=== PATIENT | male | born 2000 | race Hispanic/Latino ===

== ENCOUNTER 2021-07-25 19:17 | Emergency (ER) | payer SELFPAY ==
[2021-07-25 19:19] VITALS: BP 146/86
[2021-07-25] MEDS ORDERED: TETANUS/DIPHTHERIA TOXOID [ADULT] 0.5 ML VIAL IM ONE ×2 (20:00→20:02)
== END 2021-07-25 20:25 | disposition home or self-care (01) ==
LOC: EDH 19:17
DX: S91.332A Puncture wound without foreign body, left foot, initial encounter (principal); W26.8XXA Contact with other sharp object(s), not elsewhere classified, initial encounter; Y93.89 Activity, other specified; Y92.89 Other specified places as the place of occurrence of the external cause; Y99.8 Other external cause status
CPT/HCPCS: 90471; 90714

== ENCOUNTER 2022-01-09 22:17 | Emergency (ER) | payer SELFPAY ==
[~2022-01-09] VITALS: Ht 167.6 cm; Wt 90.7 kg
[2022-01-09] MEDS ORDERED: DEXAMETHASONE SOD PHOSPHATE 4 MG/ML 1ML VIAL IM ONE (23:30)
[2022-01-09] MEDS ORDERED: AMOX1TAB16 PO (23:36)
[2022-01-09] MEDS ORDERED: BENZ1LOZ83 MM (23:36)
[2022-01-09 23:38] VITALS: BP 135/72
== END 2022-01-10 00:05 | disposition home or self-care (01) ==
LOC: EDH 22:17
DX: J02.9 Acute pharyngitis, unspecified (principal); Z79.52 Long term (current) use of systemic steroids
CPT/HCPCS: 87880; 96372; 99283; J1100